=== PATIENT | female | born 1985 | race Caucasian/White ===

== ENCOUNTER 2017-07-15 07:44 | Inpatient (IN) | payer OTHER ==
[2017-07-15] MEDS ORDERED: Misoprostol TAB* 100 MCG VAGINAL ONE (08:55)
[2017-07-15] MEDS ORDERED: Dibucaine 1% 28.35 GM TUBE PR PRN (16:39)
[2017-07-15] MEDS ORDERED: Witch Hazel PAD* JAR TOPICAL PRN (16:39)
[2017-07-15] MEDS ORDERED: Ibuprofen TAB* 600 MG ONE (17:13)
[2017-07-15] MEDS: Ibuprofen TAB* 600 MG PO PRN (17:15)
[2017-07-15] MEDS: Acetaminophen TAB* 325 MG PO PRN (20:05)
[2017-07-15] MEDS: Docusate CAP* 100 MG PO SCH (20:05)
[2017-07-16] MEDS: Acetaminophen TAB* 325 MG PO PRN ×2 (02:43→08:58)
[2017-07-16 07:25] LABS: Hematocrit 35 % (35-47); Hemoglobin 11.8 g/dl (12.0-16.0); Mean Corpuscular HGB Conc 34 g/dl (31-36); Mean Corpuscular Hemoglobin 32 pg (27-31); Mean Corpuscular Volume 94 fL (80-97); Mean Platelet Volume 9 um3 (7.4-10.4); Red Blood Count 3.68 10^6/ul (4.0-5.4); Red Cell Distribution Width 13 % (10.5-15); White Blood Count 18.9 10^3/ul (3.5-10.8)
[2017-07-16] MEDS: Docusate CAP* 100 MG PO SCH ×2 (08:58→14:59)
[2017-07-16] MEDS ORDERED: Ferrous Gluconate TAB* 324 MG TAB PO SCH (09:00)
[2017-07-16] MEDS ORDERED: Measles, Mumps,Rubella VACC* 0.5 ML/VIAL SUBCUT ONE (10:11)
[2017-07-16] MEDS ORDERED: Tetan/Diph/Pertus SYR(Tdap)* 0.5 ML SYR(BOOSTRIX) use SYR IM ONE (10:11)
[2017-07-16] MEDS: Ibuprofen TAB* 600 MG PO PRN (15:00)
[2017-07-16 16:10] VITALS: BP 116/55
== END 2017-07-16 19:03 | disposition home or self-care (01) | DRG 560 ==
LOC: MCHOBOUT 07:44 → MCHOB 08:47
PROVIDERS: ADMIT Nurse Practitioner; ATTEND Nurse Practitioner
PROC: 3E0P7GC Introduction of Other Therapeutic Substance into Female Reproductive, Via Natural or Artificial Opening (ICD-10-PCS; principal; 2017-07-15)
PROC: 10907ZC Drainage of Amniotic Fluid, Therapeutic from Products of Conception, Via Natural or Artificial Opening (ICD-10-PCS; 2017-07-15)
PROC: 10E0XZZ Delivery of Products of Conception, External Approach (ICD-10-PCS; 2017-07-15)
PROC: 4A1HXCZ Monitoring of Products of Conception, Cardiac Rate, External Approach (ICD-10-PCS; 2017-07-15)
DX: O48.0 Post-term pregnancy (principal); O87.2 Hemorrhoids in the puerperium; Z3A.40 40 weeks gestation of pregnancy; Z37.0 Single live birth; O99.334 Smoking (tobacco) complicating childbirth; F17.200 Nicotine dependence, unspecified, uncomplicated; O69.81X0 Labor and delivery complicated by cord around neck, without compression, not applicable or unspecified
CPT/HCPCS: 36415; 85025; 90707; 90715; A9270-GY; S0191

== ENCOUNTER 2018-03-16 11:36 | Emergency (ER) | payer OTHER ==
[2018-03-16 12:05] VITALS: BP 116/65
--- NOTE | 2018-03-16 12:48 | UC ---
Skin Complaint HPI - HPI Summary HPI Summary: 1 WEEK OF WORSENING RASH ON ABDOMEN. STARTED 2 RED SPOTS BUT NOW COVERS WHOLE ABDOMINAL AREA. NOTHING ON BACK OR EXTREMITIES. NOT ITCHY OR PAINFUL. 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 PT HAS 2 CATS. DENIES ANY RECENT TRAVEL OR NEW EXPOSURES/MEDICATIONS. - History of Current Complaint Chief Complaint: UCSkin Time Seen by Provider: 03/16/18 11:58 Stated Complaint: RASH Hx Obtained From: Patient Hx Last Menstrual Period: 03/01/18 Onset/Duration: Gradual Onset, Lasting Days, Still Present Timing: Constant Onset Severity: Mild Current Severity: Moderate Pain Intensity: 0 Pain Scale Used: 0-10 Numeric Character: Redness Aggravating Factor(s): Nothing Alleviating Factor(s): Nothing Associated Signs & Symptoms: Positive: Rash - Allergy/Home Medications Allergies/Adverse Reactions: Allergies Allergy/AdvReac Type Severity Reaction Status Date / Time No Known Allergies Allergy Verified 03/16/18 12:04 Review of Systems Constitutional: Negative Skin: Rash Respiratory: Negative Cardiovascular: Negative Gastrointestinal: Negative Musculoskeletal: Negative All Other Systems Reviewed And Are Negative: Yes PMH/Surg Hx/FS Hx/Imm Hx Previously Healthy: Yes - Surgical History Surgical History: None Surgery Procedure, Year, and Place: 09/06/15 - Family History Known Family History: Negative: Hypertension - Social History Alcohol Use: Rare Substance Use Type: None Smoking Status (MU): Light Every Day Tobacco Smoker Type: Cigarettes Amount Used/How Often: 1/2 PPD - Immunization History Most Recent Influenza Vaccination: never Most Recent Tetanus Shot: not up to date Most Recent Pneumonia Vaccination: never Physical Exam Triage Information Reviewed: Yes Appearance: Well-Appearing, No Pain Distress, Well-Nourished Vital Signs: Initial Vital Signs Temp 98.0 F 03/16/18 12:00 Pulse 61 03/16/18 12:00 Resp 16 03/16/18 12:00 BP 116/65 03/16/18 12:00 Pulse Ox 97 03/16/18 12:00 Vital Signs Reviewed: Yes Eyes: Positive: Conjunctiva Clear ENT: Positive: Hearing grossly normal Neck: Positive: Supple Respiratory: Positive: No respiratory distress, No accessory muscle use Cardiovascular: Positive: Pulses Normal Abdomen Description: Positive: Soft Musculoskeletal: Positive: No Edema Neurological: Positive: Alert Psychological: Positive: Age Appropriate Behavior Skin: Positive: rashes - SCATTERED ERYTHEMATOUS, MACULAR RASH ON ABDOMEN. SEVERAL LESIONS ARE CIRCULAR WITH CENTRAL CLEARING. LARGEST MEASURING ABOUT 2 CM IN DIAMETER. NOT TENDER. NO EXCORATION. Course/Dx - Diagnoses Provider Diagnoses: TINEA CORPORIS Discharge - Sign-Out/Discharge Documenting (check all that apply): Discharge/Admit/Transfer - Discharge Plan Condition: Stable Disposition: HOME Prescriptions: Clotrimazole 1% CREAM* [Clotrimazole 1%*] 1 applic TOPICAL BID #30 grams Patient Education Materials: Tinea Corporis (ED) Referrals: hPu Mott MD [Primary Care Provider] - If Needed Additional Instructions: WILL COVER FOR POSSIBLE FUNGAL INFECTION WITH CLOTRIMAZOLE TOPICALLY. USE TWICE DAILY FOR UP TO 4 WEEKS. IF NO IMPROVEMENT IN THIS TIME FOLLOW-UP WITH DERMATOLOGY. DERMATOLOGY IN [place] DR. PAULINA MANZANO [facility], [facility] [address] [facility] [address]; [address] [place] [address] Dr. Brook Sears [place] Address: [address] [place] [address] [address] [place] [address] DR. ELENA AVENDAÑO [facility] Dermatology [address] [place] [address] DER[address] [place] Dr. Jo Ann Marie DERMATOLOGY IN [place] DR. CRIS SEVILLA [phone] - Billing Disposition and Condition Condition: STABLE Disposition: HOME
== END 2018-03-16 12:46 | disposition home or self-care (01) ==
LOC: UCEAST 11:36
DX: B35.4 Tinea corporis (principal); F17.210 Nicotine dependence, cigarettes, uncomplicated
CPT/HCPCS: 99212; G0463

== ENCOUNTER 2018-04-06 11:27 | Emergency (ER) | payer OTHER ==
[2018-04-06] MEDS ORDERED: Diazepam TAB(*) 5 MG PO ONE (12:00)
[2018-04-06] MEDS ORDERED: Ketorolac INJ* 60 MG/2 ML VIAL IM ONE (12:00)
[2018-04-06 13:48] VITALS: BP 116/65
--- NOTE | 2018-04-06 18:09 | ED ---
Back Pain - HPI Summary HPI Summary: Patient is a 32-year-old female who presents emergency department for right low back pain times several days. Pain radiates into right leg. She denies numbness, tingling or weakness to legs. Denies bowel or bladder incontinence or retention. Denies hematuria, dysuria or frequency. Patient states she's had similar symptoms in the past. She does not recall any specific injuries or falls. States she's been taking next dose of Tylenol Motrin with no relief for pain. Heat mildly improves pain. Symptoms are mild in severity. Movement and walking makes symptoms worse. Rest makes symptoms better. - History of Current Complaint Chief Complaint: EDBackInjuryPain Stated Complaint: BACK PAIN Time Seen by Provider: 04/06/18 11:40 Hx Obtained From: Patient Hx Last Menstrual Period: 03/01/18 Pain Intensity: 2 Pain Scale Used: 0-10 Numeric - Allergies/Home Medications Allergies/Adverse Reactions: Allergies Allergy/AdvReac Type Severity Reaction Status Date / Time No Known Allergies Allergy Verified 03/16/18 12:04 PMH/Surg Hx/FS Hx/Imm Hx Previously Healthy: Yes Endocrine/Hematology History: Reports: Hx Anemia Denies: Hx Diabetes, Hx Thyroid Disease Cardiovascular History: Denies: Hx Hypertension Respiratory History: Denies: Hx Asthma, Hx Chronic Obstructive Pulmonary Disease (COPD) GI History: Denies: Hx Ulcer - Surgical History Surgery Procedure, Year, and Place: 09/06/15 Hx Anesthesia Reactions: No Infectious Disease History: No Infectious Disease History: Denies: Hx Hepatitis, Hx Human Immunodeficiency Virus (HIV), History Other Infectious Disease, Traveled Outside the [place] in Last 30 Days - Family History Known Family History: Negative: Hypertension - Social History Occupation: Unemployed Lives: With Family Alcohol Use: Rare Hx Substance Use: Yes Substance Use Type: Reports: None Hx Tobacco Use: Yes Smoking Status (MU): Light Every Day Tobacco Smoker Type: Cigarettes Amount Used/How Often: 1/2 PPD Review of Systems Constitutional: Negative Gastrointestinal: Negative Genitourinary: Negative Negative: burning, dysuria, frequency, flank pain Positive: Other - Right low back pain. Neurological: Negative Negative: Weakness, Paresthesia, Numbness All Other Systems Reviewed And Are Negative: Yes Physical Exam Triage Information Reviewed: Yes Vital Signs On Initial Exam: Initial Vitals Temp Pulse Resp BP Pulse Ox 97.8 F 71 16 116/77 98 04/06/18 11:34 04/06/18 11:34 04/06/18 11:34 04/06/18 11:34 04/06/18 11:34 Vital Signs Reviewed: Yes Appearance: Positive: Pain Distress - Pt. lying in bed, tearful. Family present. Head/Face: Positive: Normal Head/Face Inspection Eyes: Positive: Normal Neck: Positive: Supple Musculoskeletal: Positive: Other - Pain to right SI joint. No midline tenderness. 5/5 strength in bilteral LEs. Neurological: Positive: Normal, CN Intact II-III Psychiatric: Positive: Normal Diagnostics - Vital Signs Vital Signs Temp Pulse Resp BP Pulse Ox 04/06/18 13:47 98.0 F 58 16 116/65 98 04/06/18 12:10 18 04/06/18 11:34 97.8 F 71 16 116/77 98 - Laboratory Lab Statement: Any lab studies that have been ordered have been reviewed, and results considered in the medical decision making process. Back Pain Course/Dx - Course Course Of Treatment: Patient presenting to the ER for back pain. Exam and symptoms are consistent with sciatica. She has no neurological deficits on exam or evidence of cauda equina syndrome. Patient was given IM Toradol in the ER which minimally improved her pain. Patient states taking max dose of Tylenol and Motrin at home with no relief. We'll prescribe her a few days of Ultram, Flexeril and prednisone. RETAIL PHARMACY TECHNICIAN. No red flags notified. Advised to apply warm compresses. Close f.u with PCP. - Diagnoses Differential Diagnosis/HQI/PQRI: Positive: Arthritis, Cauda Equina Syndrome, Herniated Disc, Renal Colic, Strain, Sprain Provider Diagnoses: Sciatica Discharge - Sign-Out/Discharge Documenting (check all that apply): Discharge/Admit/Transfer - Discharge Plan Condition: Good Disposition: HOME Prescriptions: Cyclobenzaprine TAB* [Flexeril 10 MG TAB*] 10 mg PO TID PRN #9 tab PRN Reason: Pain methylPREDNISolone [Medrol Dosepak 4 MG*] 0 mg PO .SEE PUMA INSTRUCTION #1 tab traMADol TAB* [Ultram*] 50 mg PO Q6HR PRN #12 tab MDD 4 tablets PRN Reason: Pain Patient Education Materials: Sciatica (ED) Referrals: [facility] [Outside] No Primary Care Phys,NOPCP [Primary Care Provider] - Additional Instructions: Call the [facility] [place] to establish a PCP Take medication as directed Apply warm compresses Avoid heavy lifting Return to ER if symptoms change or worsen - Billing Disposition and Condition Condition: GOOD Disposition: HOME
== END 2018-04-06 13:47 | disposition home or self-care (01) ==
LOC: ED 11:27
DX: M54.31 Sciatica, right side (principal); F17.210 Nicotine dependence, cigarettes, uncomplicated
CPT/HCPCS: 96372; 99282; A9270-GY; J1885

== ENCOUNTER 2019-04-18 13:29 | Emergency (ER) | payer OTHER ==
[2019-04-18 13:52] VITALS: BP 98/54
[2019-04-18] MEDS ORDERED: Lidocaine 1%* 5 ML VIAL INJ ONE (14:42)
--- NOTE | 2019-04-18 14:47 | UC ---
Skin Complaint HPI - HPI Summary HPI Summary: Patient is a 33 y/o otherwise healthy female c/o "boil" on her left buttock x 2 days. States she was sent here by [employer]END[employer] for I&D. Notes pain, denies drainage, red streaking, chest pain, nausea, vomiting, fevers, chills. Denies previous hx of abscess. States she is 16 weeks . Smokes 1/4 PPD. - History of Current Complaint Chief Complaint: UCSkin Time Seen by Provider: 04/18/19 14:33 Stated Complaint: ABCESS Hx Obtained From: Patient Hx Last Menstrual Period: December 04 ?: Yes Onset/Duration: Sudden Onset Skin Exposure Onset/Duration: Days Ago Timing: Constant Onset Severity: Moderate Current Severity: Moderate Pain Intensity: 3 Pain Scale Used: 0-10 Numeric Location: Discrete - Left buttock Character: Raised, Painful Aggravating Factor(s): Nothing Alleviating Factor(s): Nothing Associated Signs & Symptoms: Negative: Nausea, Vomiting, Fever, Chills, Chest Pain, Red Streaks - Allergy/Home Medications Allergies/Adverse Reactions: Allergies Allergy/AdvReac Type Severity Reaction Status Date / Time No Known Allergies Allergy Verified 04/18/19 13:48 Home Medications: Home Medications Ondansetron ODT TAB* [Zofran 4 MG Odt TAB*] 4 mg PO Q6H PRN 04/18/19 [History Confirmed 04/18/19] Vitamin TAB* 1 tab PO DAILY 04/18/19 [History Confirmed 04/18/19] PMH/Surg Hx/FS Hx/Imm Hx Previously Healthy: Yes - Surgical History Surgical History: None Surgery Procedure, Year, and Place: 09/06/15 - Family History Known Family History: Positive: Non-Contributory Negative: Hypertension - Social History Alcohol Use: None Substance Use Type: None Smoking Status (MU): Light Every Day Tobacco Smoker Type: Cigarettes Amount Used/How Often: 5 cig per day - Immunization History Most Recent Influenza Vaccination: never Most Recent Tetanus Shot: not up to date Most Recent Pneumonia Vaccination: never Review of Systems All Other Systems Reviewed And Are Negative: Yes Constitutional: Negative: Fever, Chills Skin: Positive: Other - Abscess, left buttock Cardiovascular: Negative: Chest Pain Gastrointestinal: Negative: Vomiting, Nausea Physical Exam Triage Information Reviewed: Yes Appearance: Well-Appearing, No Pain Distress Vital Signs: Initial Vital Signs Temp 97.8 F 04/18/19 13:43 Pulse 60 04/18/19 13:43 Resp 16 04/18/19 13:43 BP 98/54 04/18/19 13:43 Pulse Ox 98 04/18/19 13:43 Vital Signs Reviewed: Yes Eye Exam: Normal ENT Exam: Normal Dental Exam: Normal Respiratory Exam: Normal Respiratory: Positive: Lungs clear, Normal breath sounds Cardiovascular Exam: Normal Cardiovascular: Positive: RRR, No Murmur Skin: Positive: Other - 1 cm x 0.5 cm abscess to medial left buttock. No active drainage. Tenderness to palpation. No red streaking. Procedures - Incision and Drainage Left buttock I&D Site: Left buttock Anesthesia: Local, Lidocaine Instrument(s): Scalpel Course/Dx - Course Course Of Treatment: 33 y/o female with left buttock abscess. I&D performed. No packing needed, wound dressed. Patient discharged with prescription for Keflex x 4 days. To f/u with [employer] and PCP - Differential Diagnoses - Skin Complaint Differential Diagnoses: Abscess - Diagnoses Provider Diagnosis: Abscess of buttock, left, Second trimester Discharge - Sign-Out/Discharge Documenting (check all that apply): Patient Departure All imaging exams completed and their final reports reviewed: No Studies - Discharge Plan Condition: Improved Disposition: HOME Prescriptions: Cephalexin CAP* [Keflex CAP*] 500 mg PO TID #12 cap Patient Education Materials: Abscess (ED) Referrals: [facility] [Outside] Additional Instructions: Take antibiotics as prescribed with food. Keep wound clean with soap and water. Warm compresses as needed. Follow up with your PCP - Billing Disposition and Condition Condition: IMPROVED Disposition: Home - Attestation Statements Document Initiated by Scribe: Yes Documenting Scribe: SANDRA Novoa Provider For Whom Scribe is Documenting (Include Credential): Dr. Garza Scribromeo Attestation: Shaan Moreno PA-S, scribed for Dr. Garza on 04/18/19 at 1657. Scribe Documentation Reviewed: Yes Provider Attestation: The documentation as recorded by the Shaan espino PA-S accurately reflects the service I personally performed and the decisions made by me, Dr. Garza Status of Scribe Document: Viewed
== END 2019-04-18 15:10 | disposition home or self-care (01) ==
LOC: UCEAST 13:29
DX: O26.892 Other specified pregnancy related conditions, second trimester (principal); O99.332 Smoking (tobacco) complicating pregnancy, second trimester; L02.31 Cutaneous abscess of buttock; Z3A.16 16 weeks gestation of pregnancy
CPT/HCPCS: 10060; 99212; G0463

== ENCOUNTER 2019-10-10 10:33 | Inpatient (IN) | payer OTHER ==
[2019-10-10] MEDS ORDERED: Misoprostol TAB* 100 MCG VAGINAL ONE (10:53)
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
[2019-10-10 12:19] LABS: Urine Benzodiazepine Screen None Detected (None Detect); Urine Opiates Screen None Detected (None Detect)
[2019-10-10] MEDS ORDERED: Misoprostol TAB* 100 MCG PO ONE (15:25)
--- NOTE | 2019-10-10 15:29 | PN ---
Progress Note - Progress Note Date of Service: 10/10/19 Note: S: Pt bouncing comfortably on the ball at the side of the bed. Has been up and walking. Had some increased cramping but seems to be spacing out again. O: VSS, afebrile FHT 135bpm. Moderate variability. +Accels. No decels UCs mild, irregular VE 3-4cm/70%/vtx -1 A: IUP at 41 weeks here for postdates IOL No evidence of metabolic acidemia P: Pt hoping to avoid IV and pitocin. Agrees to repeat dose of misoprostol. This time plan oral route. Consider amniotomy PRN.
--- NOTE | 2019-10-10 19:08 | PN ---
Progress Note - Progress Note Date of Service: 10/10/19 Note: S: Pt more uncomfortable. Reports regular UCs q 4 min. A little teary with peak. Requests VE. May be interested in intrathecal. O: BP 112/63 HR 67 RR 18 T 98.3 FHT 130bpm. Moderate variability. +Accels. No decels UCs q 3-4 min, moderate VE 4cm/80%/vtx -1 A: IUP at 41 weeks in early active labor No evidence of metabolic acidemia P: Pt consents to placement of saline lock. Will continue to monitor UCs. Consider amniotomy and ITF if desired.
[2019-10-10 19:27] LABS: ABS Basophils 0.1 10^3/ul (0-0.2); ABS Eosinophils 0.1 10^3/ul (0-0.6); ABS Lymphocytes 3.1 10^3/ul (1.0-4.8); ABS Monocytes 0.6 10^3/ul (0-0.8); ABS Neutrophils 9.1 10^3/ul (1.5-7.7); Eosinophil % 0.8 %; Hematocrit 35 % (35-47); Hemoglobin 11.8 g/dL (12.0-16.0); Lymphocyte % 23.9 %; Mean Corpuscular HGB Conc 34 g/dL (31-36); Mean Corpuscular Hemoglobin 31 pg (27-31); Mean Corpuscular Volume 92 fL (80-97); Mean Platelet Volume 9.2 fL (7.4-10.4); Platelet Count 229 10^3/uL (150-450); Red Blood Count 3.76 10^6 /uL (3.70-4.87); Red Cell Distribution Width 14 % (10-15)
--- NOTE | 2019-10-10 20:41 | PN ---
Progress Note - Progress Note Date of Service: 10/10/19 Note: S: Pt coping well with active labor contractions. Undecided about pain relief. Hopes to be done soon O: VSS FHT 135-140bpm by destinee UCs q 2-3, firm VE 7-8/100%/vtx -1, intact A: IUP at 41-0/7 in labor No evidence of metabolic acidemia P: Pt aware that she can request pain relief PRN. Anticipate trial of pushing soon.
--- NOTE | 2019-10-10 20:49 | PN ---
Progress Note - Progress Note Date of Service: 10/10/19 Note: Quick Note: Pt requests use of nitrous oxide for pain relief. Order input.
[2019-10-10] MEDS ORDERED: Oxytocin in LR* 0 UNITS/0 ML BAG IVPB ONE (21:29)
[2019-10-10] MEDS ORDERED: Dibucaine 1% 28.35 GM TUBE PR PRN (22:13)
[2019-10-10] MEDS ORDERED: OXYTOCIN* 10 UNITS/ML 1 ML VIAL IM ONE (22:13)
[2019-10-10] MEDS ORDERED: Witch Hazel PAD* JAR TOPICAL PRN (22:13)
[2019-10-10] MEDS ORDERED: Glycerin ADULT SUPP PR PRN (22:13)
--- NOTE | 2019-10-10 22:22 | PROCNOTE ---
[facility] OB: Delivery Note - Delivery A Date of : 10/10/19 Time of : 21:57 Ancram Sex: Male - "Al Loyd" Ancram Weight at : 7 lb 10 oz Score 1 Minute: 8 Score 5 Minutes: 9 Gestational Age in Weeks and Days at Delivery: 41 Weeks and 0 Days Delivery Method: Spontaneous Vaginal Labor: Induced - with vaginal misoprostol x 1 and oral misoprostol x 1. Amniotomy to clear fluid at 9cm Did Patient attempt ?: N/A, No Previous Amniotic Fluid: Clear Estimated Blood Loss: 350 Anesthesia/Analgesia: Nitrous-Labor Delivered By: Fan Ziegler - Nursery Level of Nursery: Regular/Bedside - Perineum Perineal Injury: None/Intact Perineal Repair: None - Events Delivery Events of Note: Pitocin Only After Delivery - Additional Delivery Notes Additional Delivery Notes: Pt admitted for postdates induction of labor. Received vaginal misoprostol x 1 followed by oral misoprostol x 1 which led to onset active labor. Amniotomy to clear fluid at 9cm. Length of labor 3 hours, 1 min. Pushed x 14 min. liveborn male. Slow, controlled delivery of head. OA to STELLA. Shoulders followed easily. Ancram vigorous with spontaneous cry. HR>110bpm. Delivered to maternal abdomen. Cord clamped x 2 and cut by pt's sister once pulsations ceased. Spontaneous delivery intact placenta. Membranes complete. Fundus firm to massage with moderate bleeding. 10units IM pitocin given. Fundus firm to massage and remained firm. Perineum intact. No repair needed as above. EBL 350mL. At time of note mother and infant in stable condition. Planning to both breast and bottle feed.
[2019-10-10] MEDS: Acetaminophen TAB* 325 MG PO PRN (22:39)
[2019-10-10] MEDS: Ibuprofen TAB* 600 MG PO SCH (22:40)
[2019-10-11] MEDS: Ibuprofen TAB* 600 MG PO SCH ×3 (04:23→23:40)
[2019-10-11] MEDS: Acetaminophen TAB* 325 MG PO PRN ×2 (04:23→08:30)
[2019-10-11] MEDS ORDERED: Simethicone TAB* 80 MG TAB.CHEW PO SCH (08:30)
[2019-10-11] MEDS: Docusate CAP* 100 MG PO SCH ×3 (08:31→19:34)
[2019-10-11 08:42] LABS: ABS Basophils 0.1 10^3/ul (0-0.2); ABS Eosinophils 0.1 10^3/ul (0-0.6); ABS Lymphocytes 3.3 10^3/ul (1.0-4.8); ABS Neutrophils 13.2 10^3/ul (1.5-7.7); Eosinophil % 0.5 %; Hematocrit 33 % (35-47); Hemoglobin 11.3 g/dL (12.0-16.0); Lymphocyte % 18.8 %; Mean Corpuscular HGB Conc 34 g/dL (31-36); Mean Corpuscular Hemoglobin 32 pg (27-31); Mean Corpuscular Volume 94 fL (80-97); Mean Platelet Volume 9.5 fL (7.4-10.4); Nucleated Red Blood Cells % 0.1; Platelet Count 231 10^3/uL (150-450); Red Blood Count 3.51 10^6 /uL (3.70-4.87); Red Cell Distribution Width 14 % (10-15); White Blood Count 17.7 10^3/uL (3.5-10.8)
[2019-10-11] MEDS ORDERED: Ferrous Gluconate TAB* 324 MG TAB PO SCH (09:00)
[2019-10-11] MEDS ORDERED: Tetan/Diph/Pertus SYR(Tdap)* 0.5 ML SYR(BOOSTRIX) use SYR contains LATEX IM ONE (09:00)
[2019-10-11] MEDS ORDERED: Lactated Ringers 1000 ML Bag* 1,000 ML IV ONE (09:28)
[2019-10-11] MEDS ORDERED: Buffered Lidocaine 1% SYRIN* 1 ML/SYRINGE INTRADERM ONE (09:28)
[2019-10-11] MEDS ORDERED: Lactated Ringers 1000 ML Bag* 1,000 ML IV SCH (10:00)
[2019-10-11] MEDS: oxyCODONE/Acetamin 5/325 MG* TAB PO PRN ×2 (12:13→18:45)
[2019-10-12] MEDS: Docusate CAP* 100 MG PO SCH (08:57)
[2019-10-12] MEDS ORDERED: Prenatal Vitamin TAB PO SCH (09:00)
[2019-10-12] MEDS ORDERED: medroxyPROGESTERone ACETATE (DEPOT)* 150 MG/ML 1 ML IM ONE (09:00)
[2019-10-12] MEDS: Ibuprofen TAB* 600 MG PO SCH ×2 (10:29→10:40)
[2019-10-12 11:13] VITALS: BP 115/63
== END 2019-10-12 13:30 | disposition home or self-care (01) | DRG 560 ==
LOC: MCHOBOUT 10:33 → MCHOB 10:53
PROVIDERS: ADMIT Midwife; ATTEND Midwife
PROC: 10E0XZZ Delivery of Products of Conception, External Approach (ICD-10-PCS; principal; 2019-10-10)
PROC: 3E033VJ Introduction of Other Hormone into Peripheral Vein, Percutaneous Approach (ICD-10-PCS; 2019-10-10)
PROC: 10907ZC Drainage of Amniotic Fluid, Therapeutic from Products of Conception, Via Natural or Artificial Opening (ICD-10-PCS; 2019-10-10)
DX: O48.0 Post-term pregnancy (principal); Z37.0 Single live birth; Z3A.41 41 weeks gestation of pregnancy; O77.0 Labor and delivery complicated by meconium in amniotic fluid; O99.344 Other mental disorders complicating childbirth; F41.8 Other specified anxiety disorders; O99.334 Smoking (tobacco) complicating childbirth; F17.210 Nicotine dependence, cigarettes, uncomplicated; O69.89X0 Labor and delivery complicated by other cord complications, not applicable or unspecified
CPT/HCPCS: 36415; 80307; 85025; 86850; 86900; 86901; 90715; A9270-GY; J1050; J2590; S0191

== ENCOUNTER 2019-12-02 10:13 | Day surgery (SDC) | payer OTHER ==
[~2019-12-02 10:13] MED LIST: Buffered Lidocaine 1% SYRIN* 1 ML/SYRINGE INTRADERM ONE; Lactated Ringers 1000 ML Bag* 1,000 ML IV SCH
[2019-12-02] MEDS ORDERED: Bupivacaine 0.25% SDV* 30 ML ONE (11:49)
[2019-12-02] MEDS ORDERED: Succinylcholine* 20 MG/ML 10 ML VIAL ONE (12:25)
[2019-12-02] MEDS ORDERED: Propofol* 10 MG/ML 20 ML BTL ONE (12:25)
[2019-12-02] MEDS ORDERED: Acetaminophen IV 1GM/100ML * 100 ML ONE ×2 (12:25→12:57)
[2019-12-02] MEDS ORDERED: fentaNYL* 50 MCG/ML 5 ML VIAL (250 MCG VIAL) ONE (12:26)
[2019-12-02] MEDS ORDERED: Rocuronium* 10 MG/ML VIAL ONE (12:27)
[2019-12-02] MEDS ORDERED: Midazolam* 1 MG/ML 2 ML VIAL (2 MG) ONE (12:30)
[2019-12-02] MEDS ORDERED: Ondansetron INJ* 2 MG/ML VIAL ONE (12:57)
[2019-12-02] MEDS ORDERED: Dexamethasone IV* 4 MG/ML 1 ML (4 MG) ONE (12:57)
[2019-12-02] MEDS ORDERED: Ketorolac INJ* 30 MG/ML 1 ML VIAL ONE (12:57)
[2019-12-02] MEDS ORDERED: Glycopyrrolate IV* 0.2 MG/ML 1 ML VIAL ONE (13:15)
[2019-12-02] MEDS ORDERED: Neostigmine Methylsulfate* 3 MG/3 ML SYRINGE ONE (13:15)
[2019-12-02] MEDS ORDERED: HYDROmorphone INJ1* 1 MG/ML SYRINGE IV PRN (13:45)
[2019-12-02] MEDS ORDERED: oxyCODONE/Acetamin 5/325 MG* TAB PO PRN (13:45)
[2019-12-02] MEDS ORDERED: Naloxone* 0.4 MG/ML 1 ML VIAL IV PRN (13:45)
[2019-12-02] MEDS ORDERED: DiMENhydriNATE IV* 50 MG/ML VIAL IV PUSH PRN (13:46)
[2019-12-02] MEDS ORDERED: fentaNYL* 50 MCG/ML 2 ML VIAL (100 MCG VIAL) ONE (13:51)
[2019-12-02] MEDS: fentaNYL* 50 MCG/ML 2 ML VIAL (100 MCG VIAL) IV PRN ×3 (13:52→14:11)
[2019-12-02] MEDS ORDERED: oxyCODONE/Acetamin 5/325 MG* TAB ONE (14:20)
[2019-12-02 15:04] VITALS: BP 111/67
--- NOTE | 2019-12-03 03:05 | OP ---
DATE OF OPERATION: 12/02/19 [facility] DATE OF : 83 SURGEON: Larisa Starks MD ANESTHESIA: General endotracheal. PRE-OP DIAGNOSIS: Satisfied parity. POST-OP DIAGNOSES: Satisfied parity and left adnexal adhesions. OPERATIVE PROCEDURE: Laparoscopic bilateral tubal ligation with bipolar and lysis of adhesions. ESTIMATED BLOOD LOSS: Minimal. URINE OUTPUT: 100 cc. IV FLUIDS: 500 cc lactated Ringer's. MATERIALS TO LAB: None. INDICATIONS: This patient is a 33-year-old 7, para 4, recently . The patient had expressed a strong desire for permanent sterilization earlier in her and she returned to have the procedure performed. She was extensively counseled again and consent was signed. FINDINGS: Normal appearing uterus and right tube and ovary. Left ovary appeared normal, but the left tube appeared moderately dilated towards the distal end and there were several adhesions between the omentum and the left tube. These were taken down using the Kleppinger with avinash. COMPLICATIONS: None. DESCRIPTION OF PROCEDURE: The risks, benefits, and alternatives were described to the patient, and informed consent was obtained. The patient was taken to the operating room with IV running where general anesthesia was induced and found to be adequate. The patient was prepped and draped in normal-sterile fashion in the low lithotomy position in Nghia stirrups. A time-out was performed. The bladder was emptied. A bivalve speculum was placed in the vagina and a Hulka tenaculum was placed through the cervix into the uterus. The speculum was then removed. Attention was then turned to the abdomen. 0.25% Marcaine was then injected into the skin of the umbilicus as well as 2-cm above the pubic symphysis. A 5 mm skin incision was made with a scalpel in the umbilicus. A bladeless with trocar was then inserted through the incision and into the peritoneal cavity without difficulty. The skin was elevated using penetrating towel clamps. Once the trocar was in the abdominal cavity, the abdomen was insufflated with carbon dioxide gas to a maximum pressure of 15 mmHg. Using the camera, the area below the trocar placement was carefully inspected and there was no evidence of trauma or bleeding. The patient was placed in the Trendelenburg position. A second 5mm incision was placed 2 cm above the pubic symphysis in a transverse fashion. A 5mm blunt trocar was also placed through this incision and into the abdominal cavity without difficulty. Using the Hulka tenaculum for manipulation, the uterus was elevated and well visualized. The left fallopian tube was adhesed to the omentum, and the distal tube appeared somewhat dilated. The Kleppinger was used to coagulate a band of adhesion to the tube. Avinash were then used to take this down with good hemostasis. The Kleppinger was then placed on the patient's left fallopian tube in the mid isthmic portion without difficulty. Bipolar energy was used to fully coagulate several adjacent sites. The same was then performed on the patient's right side, again without difficulty and with excellent hemostasis. The case was then completed. The trocars were removed from the abdomen and the gas was allowed to escape. The suprapubic skin was reapproximated using 4-0 Monocryl in a subcuticular stitch, and the incisions were then overlaid with Dermabond skin adhesive. The tenaculum was then removed from the cervix as well , and there was minimal bleeding from the vagina at that time. The patient was returned to the supine position and allowed to awaken. The patient tolerated the procedure well. Sponge, lap, and needle counts were correct x2. [id number]/[facility] #: [id number] [facility]
== END 2019-12-02 15:15 | disposition home or self-care (01) ==
LOC: OR 10:13
PROVIDERS: ATTEND Obstetrics & Gynecology
DX: Z30.2 Encounter for sterilization (principal); N73.6 Female pelvic peritoneal adhesions (postinfective); F17.210 Nicotine dependence, cigarettes, uncomplicated; Z87.442 Personal history of urinary calculi
CPT/HCPCS: 81025; A9270-GY; J0330; J1100; J1885; J2250; J2405; J2704; J2710; J3010; J3490